=== PATIENT | female | born 1950 | race Caucasian/White ===

== ENCOUNTER → 2017-10-14 | Outpatient (CLI) | payer MEDICARE, OTHER ==
[~2017-10-14] MED LIST: CHOL200074 PO; CHOL400C10 PO; CITA10SO9 PO; INUL2.5T PO; LOR5/325 PO; METH4TAB57 PO; OMEG500C5 PO; VALA100062 PO; [UNRECOGNIZED DRUG - CODE] PO
[2017-10-14 11:31] LABS: PLATELET COUNT, AUTOMATED 203 K/uL (150-450)
== END ==
LOC: LAB 10:42
PROVIDERS: ATTEND Orthopaedic Surgery Hand Surgery
DX: B99.9 Unspecified infectious disease (principal)
CPT/HCPCS: 36415; 85025; 85651; 86140

== ENCOUNTER → 2018-09-28 | Outpatient (CLI) | payer MEDICARE, OTHER ==
--- NOTE | 2018-09-28 18:09 | RADIOLOGY IMAGING REPORT ---
FACILITY: [facility] - [place] PATIENT NAME: Shana Jiménez : 1950 MR: [id number] V: [id number] EXAM DATE: ORDERING PHYSICIAN: PAOLA WHITESIDE TECHNOLOGIST: Location: [facility] - [place] Patient: Shana Jiménze : 1950 Visit/Account:[id number] Date of Sevice: 09/28/2018 DEXA Scan Clinical history: Postsurgical menopause. Comparison: DEXA scan from 09/22/2006. LUMBAR SPINE: The bone mineral density (BMD) measured from L1-L4 correlates with a Z-score of 3.3 and a T-score of 1.8 which is Normal as defined by the World Health Organization. The corresponding risk of fracture in the lumbar spine is Not increased compared with a young adult reference population. This value bills s increase by one % since the prior study. More than 5% change is considered significant. HIP: Bone mineral density (BMD) measured in the LEFT total hip region correlates with a Z-score 0.7 and a T-score of 0.5 which is normal as defined by the World Health Organization. The corresponding risk of fracture in the hip is 1-2 t imes increased compared to a young adult reference population. This value has decrease by five % sinc e the prior study. More than 5% change is considered significant. T score left femoral neck -1 Bone mineral density (BMD) measured in the Femoral Neck region measures 0.898 g/cm?. IMPRESSION: 1. Lumbar spine: Normal. There has been 1% increase in the bone mineral density since the previous exam. 2. Left Total Hip: Normal. There has been 5% decrease in the bone mineral density since the previou s exam. 3. Femoral Neck: Bone Mineral Density is 0.898 g/cm? The next DEXA scan of this patient should include the following sites: L1-L4 and the left hip. FRAX? WHO Fracture Risk Assessment Tool link: <http://www.shef.ac.uk/FRAX/tool.jsp?locationValue=9> PLEASE NOTE: 1) The World Health Organization defines low BMD as follows: T-score Normal > -1 Osteopenia < -1 and > -2.5 Osteoporosis < -2.5 without fractures Established osteoporosis < -2.5 with fractures 2) In general, you may wish to consider: Diagnosis Treatment Follow-up DEXA Normal BMD Prevention 2-3 years Osteopenia Prevention/therapy 1-2 years Osteoporosis Therapy Yearly 3) Fracture risk estimated from the T-score is more accurate for vertebral fractures (often spontane ous) than for hip fractures. Report Dictated By: Sis Barrett MD at 09/28/2018 6:04 PM Report E-Signed By: Sis Barrett MD at 09/28/2018 6:06 PM LEVARN:[email or web address]
== END ==
LOC: RAD 16:21
PROVIDERS: ATTEND Nurse Practitioner Family
DX: E89.41 Symptomatic postprocedural ovarian failure (principal)
CPT/HCPCS: 77080